=== PATIENT | male | born 1995 | race African-American/Black ===

== ENCOUNTER 2025-03-20 12:04 | Inpatient (IN) | payer OTHER ==
[~2025-03-20] VITALS: Ht 180.3 cm; Wt 99.1 kg
[2025-03-20] MEDS ORDERED: HOME MED LIST COMPLETE! XX SCH (13:10)
[2025-03-20 13:30] LABS: BASO # 0.0 10^3/uL (0.0-0.2); BASO % 0.3 % (0.0-1.0); EOS # 0.0 10^3/uL (0.0-0.5); EOS % 0.4 % (0.0-3.0); LYMPH # 1.3 10^3/uL (1.5-5.0); LYMPH % 17.2 % (24.0-44.0); MONO # 0.4 10^3/uL (0.0-0.8); MONO % 5.8 % (2.0-8.0); NEUTROPHILS # 5.7 10^3/uL (1.5-8.5); NEUTROPHILS % 75.9 % (36.0-66.0); PLATELET COUNT, AUTOMATED 240 10^3/uL (150-450)
[2025-03-20 14:03] LABS: ALT/SGPT 66 U/L (7.0-40); AST/SGOT 178 U/L (<34); CALCIUM LEVEL 9.1 MG/DL (8.5-10.1); CARBON DIOXIDE LEVEL 29 MMOL/L (20-31); CHLORIDE LEVEL 105 MMOL/L (98-107); CREATININE FOR GFR 1.26 MG/DL (0.70-1.30); GLOMERULAR FILTRATION RATE 78.2 (>60); MAGNESIUM LEVEL 1.7 MG/DL (1.8-2.4); POTASSIUM SERUM 4.5 MMOL/L (3.5-5.1); SODIUM LEVEL 142 MMOL/L (136-145)
[2025-03-20 14:16] LABS: CPK CREATINE PHOSPHOKINASE 5992 U/L (46-171)
[2025-03-20] MEDS: NS (Normal Saline) 0.9% 1,000 ML IV ONE ×3 (14:58→16:04)
[2025-03-20] MEDS: KETOROLAC 30 MG/ML 1 ML VIAL IV ONE (15:43)
[2025-03-20] MEDS ORDERED: MAG SULF 1GM/100ML (MAG RUN) 1 GM in IV 1 EA IV SCH (16:00)
[2025-03-20 16:12] LABS: KETONE, URINE AUTO RFX NEGATIVE (NEGATIVE); LEUKOCYTE ESTERASE UR AUTO RFX NEGATIVE (NEGATIVE); NITRITE, URINE AUTO RFX NEGATIVE (NEGATIVE); RBC, URINE AUTO RFX 0 /HPF (0-3); SQUAM EPITHELIAL CELL UR AURFX 0 /HPF (0-6); WBC, URINE AUTO RFX 1 /HPF (0-3)
[2025-03-20 16:29] LABS: PHOSPHORUS LEVEL 4.1 MG/DL (2.5-4.9)
[2025-03-20 16:56] VITALS: BP 164/92; TEMP 97.5; O2SAT 100
[2025-03-20] MEDS: NS (Normal Saline) 0.9% 1,000 ML IV SCH (17:22)
[2025-03-20] MEDS: MAG SULF 1GM/100ML (MAG RUN) 1 GM in IV 1 EA IV SCH (17:23)
[2025-03-20] MEDS: amLODIPine 5 MG TAB PO ONE (18:59)
[2025-03-20 19:28] VITALS: BP 128/67; TEMP 97.6; O2SAT 98
[2025-03-20 20:00] VITALS: BP 128/67; TEMP 97.6; O2SAT 98
[2025-03-21 03:31] VITALS: BP 125/74; TEMP 97.6; O2SAT 99
[2025-03-21 04:00] VITALS: BP 125/74; TEMP 97.6; O2SAT 99
[2025-03-21] MEDS: MORPHINE 4 MG/ML 1 ML VIAL IV PRN (05:41)
[2025-03-21 06:16] LABS: CALCIUM LEVEL 8.2 MG/DL (8.5-10.1); CARBON DIOXIDE LEVEL 27 MMOL/L (20-31); CHLORIDE LEVEL 110 MMOL/L (98-107); CREATININE FOR GFR 1.10 MG/DL (0.70-1.30); GLOMERULAR FILTRATION RATE > 90.0 (>60); MAGNESIUM LEVEL 1.8 MG/DL (1.8-2.4); POTASSIUM SERUM 4.4 MMOL/L (3.5-5.1); SODIUM LEVEL 143 MMOL/L (136-145)
[2025-03-21 06:30] LABS: CPK CREATINE PHOSPHOKINASE 6927 U/L (46-171)
[2025-03-21] MEDS: ENOXAPARIN 40 MG/0.4 ML SYRINGE (J1650 PER 10MG) SC SCH (08:16)
[2025-03-21] MEDS: amLODIPine 10 MG TAB PO SCH (08:16)
[2025-03-21] MEDS: NS (Normal Saline) 0.9% 1,000 ML IV ONE (08:17)
[2025-03-21] MEDS: MAG SULF 1GM/100ML (MAG RUN) 1 GM in IV 1 EA IV ONE (09:32)
[2025-03-21 12:00] VITALS: BP 140/86; TEMP 97.1; O2SAT 100
[2025-03-21] MEDS: ACETAMINOPHEN 325 MG TAB PO ONE (19:59)
[2025-03-21 20:00] VITALS: BP 149/92; TEMP 97.9; O2SAT 99
[2025-03-21] MEDS ORDERED: IBUPROFEN 600 MG TAB PO ONE (20:00)
[2025-03-22 04:12] VITALS: BP 132/74; TEMP 97.4; O2SAT 98
[2025-03-22 06:42] LABS: CALCIUM LEVEL 10.0 MG/DL (8.5-10.1); CARBON DIOXIDE LEVEL 26.0 MMOL/L (20-31); CHLORIDE LEVEL 108.0 MMOL/L (98-107); CPK CREATINE PHOSPHOKINASE 6843.0 U/L (46-171); CREATININE FOR GFR 1.16 MG/DL (0.70-1.30); GLOMERULAR FILTRATION RATE 86.4 (>60); MAGNESIUM LEVEL 1.7 MG/DL (1.8-2.4); PHOSPHORUS LEVEL 4.5 MG/DL (2.5-4.9); POTASSIUM SERUM 4.5 MMOL/L (3.5-5.1); SODIUM LEVEL 143.0 MMOL/L (136-145)
[2025-03-22 12:00] VITALS: BP 141/83; TEMP 98; O2SAT 98
[2025-03-22] MEDS: MAG SULF 1GM/100ML (MAG RUN) 1 GM in IV 1 EA IV ONE (14:54)
[2025-03-22 19:12] VITALS: BP 144/98; TEMP 98.1; O2SAT 98
[2025-03-22] MEDS: ACETAMINOPHEN 325 MG TAB PO ONE (19:33)
[2025-03-23 03:55] VITALS: BP 137/63; TEMP 97.4; O2SAT 98
[2025-03-23 08:15] VITALS: BP 132/80
[2025-03-23 10:02] LABS: PLATELET COUNT, AUTOMATED 247 10^3/uL (150-450)
[2025-03-23 10:42] LABS: CALCIUM LEVEL 8.7 MG/DL (8.5-10.1); CARBON DIOXIDE LEVEL 28 MMOL/L (20-31); CHLORIDE LEVEL 106 MMOL/L (98-107); CPK CREATINE PHOSPHOKINASE 3865 U/L (46-171); CREATININE FOR GFR 1.04 MG/DL (0.70-1.30); GLOMERULAR FILTRATION RATE > 90.0 (>60); POTASSIUM SERUM 4.5 MMOL/L (3.5-5.1); SODIUM LEVEL 141 MMOL/L (136-145)
[2025-03-23 12:00] VITALS: BP 128/67; TEMP 98.5; O2SAT 99
[2025-03-23] MEDS ORDERED: AMLO1TAB25 PO (12:15)
== END 2025-03-23 13:01 | disposition home or self-care (01) | DRG 558 ==
LOC: M ED 12:04 → M ED INP 12:08 → UNDOADMOB 12:08 → M MS4PR 16:50 → M ED INP 16:50 → M MS4PR 03-22 07:56 → INTOOBSV 03-22 07:59 → OBSVTOIN 03-22 07:59
PROVIDERS: ADMIT Student in an Organized Health Care Education/Training Program; ATTEND Student in an Organized Health Care Education/Training Program
DX: M62.82 Rhabdomyolysis (principal); N17.9 Acute kidney failure, unspecified; Z87.891 Personal history of nicotine dependence; E83.42 Hypomagnesemia; I10 Essential (primary) hypertension